=== PATIENT | male | born 1960 | race Caucasian/White ===

== ENCOUNTER 2016-08-12 09:03 | Observation (INO) | payer OTHER ==
[~2016-08-12] VITALS: Ht 172.7 cm; Wt 118.0 kg
[~2016-08-12 09:03] MED LIST: ANALGESIC325 M1 PO; ANALGESIC325 MG PO; ENDOCET 5-3251 EACH PO; XANAX XR1 MG PO; XANAX1 MG PO
[2016-08-12 09:59] LABS: EOSINOPHIL (%) 2.1 % (0-5); EOSINOPHIL COUNT 0.1 K/uL (0-0.3); HEMATOCRIT 45.5 % (38.0-50.0); IMMATURE GRANULOCYTE (%) 0.2 % (0.0-0.7); INSTRUMENT ABS NEUTROPHIL CT 2.9 K/uL; LYMPHOCYTE COUNT 1.2 K/uL (1.0-2.8); MCHC 32.5 G/DL (30.0-36.0); MCV 89.2 FL (86-99); MEAN PLAT.VOLUME 11.4 uM^3 (9.0-12.4); MONOCYTE COUNT 0.5 K/uL (0-0.8); NEUTROPHIL (%) 61.9 % (45-76); NEUTROPHIL COUNT 2.9 K/uL (1.8-6.4); PLATELET COUNT 154 K/uL (156-360); RBC DIS.WIDTH-CV 13.3 % (11.8-14.6); RBC DIS.WIDTH-SD 43.5 % (39-53); WHITE BLOOD COUNT 4.7 K/uL (4.1-10.2)
[2016-08-12 10:09] LABS: CHLORIDE 106 mEq/L (99-109); POTASSIUM 4.8 mEq/L (3.7-5.4); SODIUM 139 mEq/L (136-147)
[2016-08-12 10:10] LABS: GLUCOSE 102 mg/dL (70-99); PROTHROMBIN TIME 10.3 (9.2-11.2); PTT 28.4 (25-32)
[2016-08-12 10:12] LABS: ANION GAP 9 MEQ/L (2-14)
[2016-08-12 10:14] LABS: GFR ESTIMATE (CALCULATED) > 59 mL/min/
[2016-08-12 10:15] LABS: UREA NITROGEN (BUN) 15 mg/dL (9-23)
[2016-08-12 10:20] LABS: TROP-I INTERPRETATION NEGATIVE; TROPONIN-I < 0.01 ng/mL (0.0-0.30)
[2016-08-12] MEDS ORDERED: ASPIR-LOW81 MG PO (10:52)
[2016-08-12] MEDS ORDERED: CLONAZEPAM1 MG PO (11:33)
[2016-08-12] MEDS ORDERED: PRAVASTATIN SOD40 MG PO (11:33)
[2016-08-12] MEDS ORDERED: FLECAINIDE ACE100 MG PO (11:34)
[2016-08-12] MEDS ORDERED: CARTIA XT120 MG PO (11:34)
[2016-08-12] MEDS ORDERED: CITALOPRAM HBR20 MG PO (11:34)
[2016-08-12] MEDS ORDERED: ASCORBIC ACID500 M3 PO (11:35)
[2016-08-12] MEDS ORDERED: FISH OIL 1,0001 EAC7 PO (11:35)
[2016-08-12 12:21] LABS: CREATINE KINASE 114 IU/L (1-294); TOTAL CK 114 IU/L (1-294)
[2016-08-12 12:26] LABS: CK-MB 0.8 ng/mL (0.0-4.9)
[2016-08-12 12:53] LABS: SAMPLE HEMOLYSIS CHECK 1; SAMPLE ICTERIC CHECK 0; SAMPLE LIPEMIA CHECK 0
[2016-08-12 12:59] LABS: HDL CHOLESTEROL 37 MG/DL (Desirable>=40); LDL CHOLESTEROL 146 mg/dL (Desirable<100); NON-HDL CHOLESTEROL 169 mg/dL (Desirable<160); TOTAL CHOLESTEROL 206 mg/dL (Desirable<200); TRIGLYCERIDES 115 MG/DL (Normal: <150)
[2016-08-12 15:02] VITALS: BP 136/81
[2016-08-12 15:11] LABS: TROP-I INTERPRETATION NEGATIVE; TROPONIN-I < 0.01 ng/mL (0.0-0.30)
[2016-08-12 15:29] VITALS: BP 114/60
[2016-08-12 19:41] VITALS: BP 103/59
[2016-08-12 21:14] LABS: TROP-I INTERPRETATION NEGATIVE; TROPONIN-I < 0.01 ng/mL (0.0-0.30)
[2016-08-13 00:41] VITALS: BP 112/56
[2016-08-13 03:03] VITALS: BP 81/50
[2016-08-13 03:22] VITALS: BP 102/54
[2016-08-13 05:51] VITALS: BP 104/60
[2016-08-13 06:23] LABS: TROP-I INTERPRETATION NEGATIVE; TROPONIN-I < 0.01 ng/mL (0.0-0.30)
[2016-08-13 11:10] VITALS: BP 107/68
== END 2016-08-13 12:59 | disposition home or self-care (01) ==
LOC: EME 09:03 → EDOF 10:41 → 5WEST 10:41
PROVIDERS: Emergency Medicine; Hospitalist; Internal Medicine; Internal Medicine Cardiovascular Disease
DX: R07.9 Chest pain, unspecified (principal); R00.1 Bradycardia, unspecified; R55 Syncope and collapse; I44.4 Left anterior fascicular block; E11.9 Type 2 diabetes mellitus without complications; I48.2 Chronic atrial fibrillation; E78.5 Hyperlipidemia, unspecified; F17.200 Nicotine dependence, unspecified, uncomplicated
CPT/HCPCS: 71010; 80048; 80061; 82550; 82550 91; 82553; 83880; 84484; 85025; 85379; 85610; 85730; 93005; 93306; 94660; 99281; 99284; G0378; J1650; J2270; J7030